=== PATIENT | female | born 1980 | race Asian ===

== ENCOUNTER 2020-10-20 15:45 | Emergency (ER) | payer BC ==
[~2020-10-20] VITALS: Ht 157.5 cm; Wt 59.1 kg
[2020-10-20 15:54] VITALS: BP 131/73
[2020-10-20] MEDS ORDERED: METHOCARBAMOL 500 MG TABLET PO ONE (16:30)
[2020-10-20] MEDS ORDERED: KETOROLAC TROMETHAMINE 10 MG TABLET PO ONE (16:30)
== END 2020-10-20 17:43 | disposition home or self-care (01) ==
LOC: EMS 15:45
DX: S39.012A Strain of muscle, fascia and tendon of lower back, initial encounter (principal); S13.4XXA Sprain of ligaments of cervical spine, initial encounter; G44.209 Tension-type headache, unspecified, not intractable; V43.52XA Car driver injured in collision with other type car in traffic accident, initial encounter; Y93.89 Activity, other specified; Y92.488 Other paved roadways as the place of occurrence of the external cause; Y99.8 Other external cause status